=== PATIENT | female | born 1940 | race Caucasian/White ===

== ENCOUNTER 2023-09-11 12:07 | Inpatient (IN) ==
[2023-09-11 13:13] LABS: ABS Basophils 0.1 10^3/uL (0.0-0.1); ABS Lymphocytes 0.5 10^3/uL (1.0-4.8); ABS Monocytes 0.5 10^3/uL (0.0-0.9); ABS Neutrophils 16.8 10^3/uL (1.5-7.6); Hematocrit 22.4 % (35-45); Hemoglobin 7.3 g/dL (11.5-14.3); Lymphocyte % 2.6 %; Mean Corpuscular Hemoglobin 29.3 pg (27-33); Mean Corpuscular Hgb Conc 32.6 g/dL (31-36); Mean Corpuscular Volume 89.7 fL (80-97); Mean Platelet Volume 6.8 fL (7.5-11.2); Platelet Count 364 10^3/uL (150-450); Red Cell Distribution Width 14.9 % (12-17); White Blood Count 17.9 10^3/uL (3.8-11.8)
[2023-09-11 13:30] LABS: Urine Appearance Clear; Urine Bilirubin Negative (Negative); Urine Blood 1+ (Negative); Urine Color Straw; Urine Glucose 2+(150 mg/dL) (Negative); Urine Ketones Trace (Negative); Urine Nitrite Negative (Negative); Urine Protein Negative (Negative); Urine Specific Gravity 1.018 (1.002-1.030); Urine Urobilinogen Negative (Negative)
[2023-09-11 13:31] LABS: Albumin 3.4 g/dL (3.2-5.2); Albumin/Globulin Ratio 1.1 (1-3); C Reactive Protein 19.79 mg/L (<8.01); Calcium 9.3 mg/dL (8.6-10.3); Creatinine, Serum 0.74 mg/dL (0.51-0.95); Potassium 4.6 mmol/L (3.5-5.0); Total Bilirubin 0.3 mg/dL (0.2-1.0); Total Protein 6.4 g/dL (6.4-8.9); eGFR CKD-EPI 81.7 (>60)
[2023-09-11 13:40] LABS: Urine Bacteria Absent (Absent); Urine Red Blood Cell Trace(0-2/hpf) (Absent); Urine Squamous Epithelial Cell Present (Absent); Urine White Blood Cell Trace(0-5/hpf) (Absent)
[2023-09-11 13:42] LABS: INR 1.21 (0.83-1.13)
[2023-09-11] MEDS ORDERED: Lactated Ringers 1000 ml BAG 1,000 ML IV ONE ×3 (13:57→19:02)
[2023-09-11 14:42] LABS: High Sensitivity Troponin 1 Hr 119 pg/mL (<15)
[2023-09-11] MEDS ORDERED: Pantoprazole VIAL 40 MG VIAL IV ONE (15:39)
[2023-09-11] MEDS ORDERED: Acetaminophen IV 1 GM/100ML 1,000 MG/100 ML BAG IV ONE (15:40)
[2023-09-11] MEDS ORDERED: Pantoprazole 80 mg in NS BAG 80 MG/250 ML BAG IV ONE (16:00)
[2023-09-11 17:05] LABS: Hemoglobin 6.1 g/dL (11.5-14.3)
[2023-09-11] MEDS ORDERED: Morphine 2 MG/ML SYRINGE IV PRN (18:45)
[2023-09-11 20:03] LABS: Hematocrit 15.3 % (35-45); Mean Corpuscular Hemoglobin 30.7 pg (27-33); Mean Corpuscular Hgb Conc 34.4 g/dL (31-36); Mean Corpuscular Volume 89.4 fL (80-97); Mean Platelet Volume 6.9 fL (7.5-11.2); Platelet Count 337 10^3/uL (150-450); Red Blood Count 1.71 10^6/uL (3.63-4.92); Red Cell Distribution Width 14.8 % (12-17); White Blood Count 13.4 10^3/uL (3.8-11.8)
[2023-09-11 21:59] LABS: Hemoglobin 5.2 g/dL (11.5-14.3)
[2023-09-11] MEDS ORDERED: HYDROmorphone 0.5 MG/0.5 ML SYRINGE IV SLOW PU PRN (23:04)
[2023-09-11 23:32] LABS: Potassium 5.2 mmol/L (3.5-5.0)
[2023-09-11 23:33] LABS: Albumin 2.4 g/dL (3.2-5.2); Albumin/Globulin Ratio 1.3 (1-3); Calcium 8.4 mg/dL (8.6-10.3); Creatinine, Serum 0.99 mg/dL (0.51-0.95); Globulin 1.8 g/dL (2-4); Total Bilirubin 0.6 mg/dL (0.2-1.0); Total Protein 4.2 g/dL (6.4-8.9); eGFR CKD-EPI 57.6 (>60)
[2023-09-12] MEDS ORDERED: Iodixanol (CONTRAST) 320 MG/ML 100 ML SDV IV ONE (00:34)
[2023-09-12] MEDS ORDERED: Sodium Bicarb 8.4% Vial 50 ML 150 MEQ in D5W 1000 ml BAG 850 ML IV SCH (01:00)
[2023-09-12] MEDS ORDERED: Lactated Ringers 1000 ml BAG 1,000 ML IV ONE (01:30)
[2023-09-12] MEDS ORDERED: Norepinephrine 16MCG/ML BAGD5W 4,000 MCG/250 ML BAG IV ONE (01:30)
[2023-09-12] MEDS: cefTRIAXone 1 gm/50 mL D5W 1 GM/50 ML BAG IV SCH ×2 (01:33→11:42)
[2023-09-12] MEDS: Norepinephrine 16MCG/ML BAGD5W 4,000 MCG/250 ML BAG IV SCH ×5 (01:34→22:49)
[2023-09-12] MEDS ORDERED: Pantoprazole 80 mg in NS BAG 80 MG/250 ML BAG IV SCH (02:00)
[2023-09-12 03:05] LABS: ABS Basophils 0.3 10^3/uL (0.0-0.1); ABS Lymphocytes 0.9 10^3/uL (1.0-4.8); ABS Monocytes 1.4 10^3/uL (0.0-0.9); ABS Neutrophils 18.4 10^3/uL (1.5-7.6); ABS Nucleated RBC 0.05 10^3/ul; Hematocrit 36.5 % (35-45); Hemoglobin 12.3 g/dL (11.5-14.3); Lymphocyte % 4.2 %; Mean Corpuscular Hemoglobin 29.3 pg (27-33); Mean Corpuscular Hgb Conc 33.5 g/dL (31-36); Mean Corpuscular Volume 87.3 fL (80-97); Mean Platelet Volume 7.2 fL (7.5-11.2); Nucleated Red Blood Cells % 0.2 %/100WBC (0.0-0.8); Platelet Count 154 10^3/uL (150-450); Red Blood Count 4.18 10^6/uL (3.63-4.92); Red Cell Distribution Width 17.1 % (12-17)
[2023-09-12 03:15] LABS: Activated Partial Thrombo Time 21.4 seconds (26.0-38.0); INR 1.27 (0.83-1.13)
[2023-09-12 03:19] LABS: Calcium 7.8 mg/dL (8.6-10.3); Potassium 4.5 mmol/L (3.5-5.0)
[2023-09-12 03:25] LABS: Creatinine, Serum 0.91 mg/dL (0.51-0.95); eGFR CKD-EPI 63.8 (>60)
[2023-09-12] MEDS ORDERED: Ondansetron 4 mg VIAL 2 MG/ML 2 ml VIAL IV PRN (05:30)
[2023-09-12 06:03] LABS: Hematocrit 36.4 % (35-45); Hemoglobin 12.3 g/dL (11.5-14.3); Mean Corpuscular Hemoglobin 29.5 pg (27-33); Mean Corpuscular Hgb Conc 33.8 g/dL (31-36); Mean Corpuscular Volume 87.4 fL (80-97); Mean Platelet Volume 7.2 fL (7.5-11.2); Platelet Count 174 10^3/uL (150-450); Red Blood Count 4.16 10^6/uL (3.63-4.92); Red Cell Distribution Width 17.3 % (12-17); White Blood Count 25.4 10^3/uL (3.8-11.8)
[2023-09-12 06:10] LABS: ABS Basophils 0.1 10^3/uL (0.0-0.1); ABS Monocytes 1.5 10^3/uL (0.0-0.9); ABS Neutrophils 22.9 10^3/uL (1.5-7.6); ABS Nucleated RBC 0.02 10^3/ul; Lymphocyte % 3.7 %; Nucleated Red Blood Cells % 0.1 %/100WBC (0.0-0.8)
[2023-09-12] MEDS ORDERED: CALCIUM GLUCONATE 1GM/50ML NS 1 GM/50 ML BAG IV ONE (06:29)
[2023-09-12 06:30] LABS: INR 1.24 (0.83-1.13)
[2023-09-12 06:34] LABS: Albumin 2.6 g/dL (3.2-5.2); Albumin/Globulin Ratio 1.3 (1-3); Calcium 8.1 mg/dL (8.6-10.3); Creatinine, Serum 0.98 mg/dL (0.51-0.95); Magnesium 1.6 mg/dL (1.9-2.7); Potassium 4.6 mmol/L (3.5-5.0); Total Bilirubin 0.9 mg/dL (0.2-1.0); Total Protein 4.6 g/dL (6.4-8.9); eGFR CKD-EPI 58.3 (>60)
[2023-09-12] MEDS ORDERED: fentaNYL 100 mcg/2 ml 50 MCG/ML VIAL IV SLOW PU PRN (06:42)
[2023-09-12 06:54] LABS: TSH Ultra Thyroid Stim Horm 2.36 mcIU/mL (0.34-5.60)
[2023-09-12] MEDS: Acetaminophen IV 1 GM/100ML 1,000 MG/100 ML BAG IV PRN (08:27)
[2023-09-12] MEDS ORDERED: Rocuronium 50 mg VIAL 10 mg/ml 5 ml VIAL (50 mg) ONE ×2 (08:33→11:00)
[2023-09-12] MEDS ORDERED: Succinylcholine 200 mg VIAL 20 mg/ml 10 ml VIAL (200 mg) ONE (08:33)
[2023-09-12] MEDS ORDERED: Phenylephrine 40 mcg/mL 10mL (400mcg) SYRINGE ONE ×2 (08:52→12:27)
[2023-09-12] MEDS ORDERED: Etomidate 40 mg/20 ml (2 MG/ML) 20 ml VIAL (40 mg) ONE (08:52)
[2023-09-12] MEDS ORDERED: Propofol 10 MG/ML 20 ML BTL ONE (08:52)
[2023-09-12] MEDS ORDERED: Midazolam 10 mg/10 ml VIAL 1 mg/ml 10 ml VIAL (10 mg) ONE (08:52)
[2023-09-12] MEDS ORDERED: Phenylephrine 40 mcg/mL 10mL (400mcg) SYRINGE IV PUSH ONE ×2 (09:00→12:30)
[2023-09-12] MEDS: Pantoprazole 80 mg in NS BAG 80 MG/250 ML BAG IV SCH ×2 (09:09→17:51)
[2023-09-12] MEDS: Midazolam 50 MG PREMIX IV DRIP 50 ML IV SCH ×3 (09:26→18:56)
[2023-09-12] MEDS ORDERED: Magnesium Sulfate IV 3 GM in NS 0.9% 100 ml BAG 100 ML IVPB ONE (09:30)
[2023-09-12 09:46] LABS: PCO2 Arterial 33 mmHg (35-45); PO2 Arterial 403 mmHg (80-100)
[2023-09-12 09:46] LABS: Hematocrit 21.5 % (35-45); Hemoglobin 7.3 g/dL (11.5-14.3); Mean Corpuscular Hemoglobin 29.7 pg (27-33); Mean Corpuscular Volume 87.1 fL (80-97); Mean Platelet Volume 7.6 fL (7.5-11.2); Platelet Count 166 10^3/uL (150-450); Red Blood Count 2.47 10^6/uL (3.63-4.92); Red Cell Distribution Width 17.1 % (12-17); White Blood Count 18.7 10^3/uL (3.8-11.8)
[2023-09-12] MEDS ORDERED: Propofol 10 mg/ml 100 ML BTL 1,000 MG/100 ML BTL ONE (10:00)
[2023-09-12] MEDS ORDERED: Midazolam 2 mg/2 ml VIAL 1 mg/ml 2 ml VIAL (2 mg) ONE (10:00)
[2023-09-12] MEDS ORDERED: Erythromycin Lactobionate IV 250 MG in NS 0.9% 100 ml BAG 100 ML IVPB ONE (10:00)
[2023-09-12] MEDS ORDERED: Midazolam 2 mg/2 ml VIAL 1 mg/ml 2 ml VIAL (2 mg) IV SLOW PU ONE (10:00)
[2023-09-12 10:02] LABS: Urine Appearance Clear; Urine Bilirubin Negative (Negative); Urine Blood Negative (Negative); Urine Color Yellow; Urine Glucose Negative (Negative); Urine Ketones Negative (Negative); Urine Nitrite Negative (Negative); Urine Protein Negative (Negative); Urine Specific Gravity 1.028 (1.002-1.030); Urine Urobilinogen Negative (Negative)
[2023-09-12] MEDS: Propofol 10 mg/ml 100 ML BTL 1,000 MG/100 ML BTL IV SCH ×3 (10:05→19:57)
[2023-09-12] MEDS: Chlorhexidine MOUTHWASH 0.12% 15 ML UDC SWISH SPIT SCH ×4 (10:13→21:53)
[2023-09-12 10:16] LABS: High Sensitivity Troponin 3 Hr 10712 pg/mL (<15)
[2023-09-12 10:31] LABS: ABS Basophils 0.1 10^3/uL (0.0-0.1); ABS Lymphocytes 1.4 10^3/uL (1.0-4.8); ABS Monocytes 1.1 10^3/uL (0.0-0.9); ABS Neutrophils 16.1 10^3/uL (1.5-7.6); ABS Nucleated RBC 0.03 10^3/ul; Lymphocyte % 7.3 %; Nucleated Red Blood Cells % 0.1 %/100WBC (0.0-0.8)
[2023-09-12] MEDS ORDERED: Vancomycin 1,000 MG in NS 0.9% 250 ml 250 ML IVPB ONE (10:57)
[2023-09-12] MEDS ORDERED: Vancomycin per Pharmacy 1 EA NOTE FOLLOW UP SCH (11:00)
[2023-09-12 11:02] LABS: Anion Gap 8 mmol/L (2-16); Blood Urea Nitrogen 90 mg/dL (6-24); CO2 Carbon Dioxide 16 mmol/L (22-32); Chloride 112 mmol/L (101-111); Creatinine, Serum 1.12 mg/dL (0.51-0.95); Glucose 206 mg/dL (70-100); Potassium 5.2 mmol/L (3.5-5.0); Sodium 136 mmol/L (135-145); eGFR CKD-EPI 49.7 (>60)
[2023-09-12 11:03] LABS: ALT 72 U/L (7-52); AST 86 U/L (13-39); Albumin < 1.7 g/dL (3.2-5.2); Albumin/Globulin Ratio 1.3 (1-3); Alkaline Phosphatase 31 U/L (35-149); Globulin 1.3 g/dL (2-4); Indirect Bilirubin 0.3 mg/dL (0.3-1.0); Magnesium 1.4 mg/dL (1.9-2.7); Phosphorus 4.6 mg/dL (2.5-5.0)
[2023-09-12] MEDS ORDERED: Rocuronium 50 mg VIAL 10 mg/ml 5 ml VIAL (50 mg) IV ONE (11:43)
[2023-09-12] MEDS ORDERED: Piperacillin/Tazobac 3.375 BAG 3.375 GM/100 ML BAG IV ONE (11:45)
[2023-09-12] MEDS ORDERED: Sulfur Hexaflouride MICROSPHR 25 MG VIAL ONE (11:49)
[2023-09-12] MEDS ORDERED: Zosyn per Pharmacy NOTE FOLLOW UP SCH (12:00)
[2023-09-12] MEDS ORDERED: Vancomycin 1,500 MG in NS 0.9% 250 ml 250 ML IVPB ONE (12:00)
[2023-09-12] MEDS ORDERED: Heparin 2 UNITS/ML IVPREMIX 1,000 UNIT/500 ML BAG IV ONE ×3 (13:17→13:37)
[2023-09-12] MEDS ORDERED: Lidocaine 1% VIAL 10 MG/ML 30 ML VIAL ONE (13:17)
[2023-09-12] MEDS ORDERED: Iodixanol 320 (CONTRAST) 100 ML SDV ONE (13:19)
[2023-09-12] MEDS ORDERED: Iohexol 350 (CONTRAST) 100 ML PAK IV ONE (13:45)
[2023-09-12 15:00] LABS: ABS Lymphocytes 0.9 10^3/uL (1.0-4.8); ABS Monocytes 0.8 10^3/uL (0.0-0.9); ABS Neutrophils 17.6 10^3/uL (1.5-7.6); ABS Nucleated RBC 0.06 10^3/ul; Hemoglobin 7.5 g/dL (11.5-14.3); Lymphocyte % 4.7 %; Mean Corpuscular Hemoglobin 29.6 pg (27-33); Mean Corpuscular Hgb Conc 34.2 g/dL (31-36); Mean Corpuscular Volume 86.5 fL (80-97); Mean Platelet Volume 7.3 fL (7.5-11.2); Nucleated Red Blood Cells % 0.3 %/100WBC (0.0-0.8); Platelet Count 174 10^3/uL (150-450); Red Blood Count 2.54 10^6/uL (3.63-4.92); Red Cell Distribution Width 16.7 % (12-17); White Blood Count 19.4 10^3/uL (3.8-11.8)
[2023-09-12 15:20] LABS: Calcium 7.3 mg/dL (8.6-10.3); Creatinine, Serum 1.44 mg/dL (0.51-0.95); Potassium 5.3 mmol/L (3.5-5.0); eGFR CKD-EPI 36.8 (>60)
[2023-09-12] MEDS: ZOSYN 3.375 GM Q8H per EXTENDED INFUSION IV SCH (16:15)
[2023-09-12 20:04] LABS: Hematocrit 29.1 % (35-45); Mean Corpuscular Hemoglobin 29.7 pg (27-33); Mean Corpuscular Hgb Conc 34.4 g/dL (31-36); Mean Corpuscular Volume 86.5 fL (80-97); Mean Platelet Volume 7.7 fL (7.5-11.2); Platelet Count 140 10^3/uL (150-450); Red Blood Count 3.36 10^6/uL (3.63-4.92); Red Cell Distribution Width 17.5 % (12-17); White Blood Count 15.2 10^3/uL (3.8-11.8)
[2023-09-12 23:13] LABS: PCO2 Arterial 36 mmHg (35-45); PO2 Arterial 114 mmHg (80-100)
[2023-09-12 23:15] LABS: Hematocrit 29.5 % (35-45); Hemoglobin 10.2 g/dL (11.5-14.3); Mean Corpuscular Hgb Conc 34.7 g/dL (31-36); Mean Corpuscular Volume 86.7 fL (80-97); Mean Platelet Volume 7.4 fL (7.5-11.2); Platelet Count 158 10^3/uL (150-450); Red Cell Distribution Width 17.3 % (12-17); White Blood Count 20.9 10^3/uL (3.8-11.8)
[2023-09-12 23:28] LABS: Albumin 2.4 g/dL (3.2-5.2); Calcium 7.3 mg/dL (8.6-10.3); Potassium 4.2 mmol/L (3.5-5.0); Total Bilirubin 0.8 mg/dL (0.2-1.0)
[2023-09-12 23:34] LABS: Albumin/Globulin Ratio 1.1 (1-3); Creatinine, Serum 1.71 mg/dL (0.51-0.95); Globulin 2.1 g/dL (2-4); Total Protein 4.5 g/dL (6.4-8.9); eGFR CKD-EPI 29.9 (>60)
[2023-09-13] MEDS: ZOSYN 3.375 GM Q8H per EXTENDED INFUSION IV SCH ×4 (00:03→23:17)
[2023-09-13] MEDS: Norepinephrine 16MCG/ML BAGD5W 4,000 MCG/250 ML BAG IV SCH (01:02)
[2023-09-13 01:16] LABS: ABS Lymphocytes 0.6 10^3/uL (1.0-4.8); ABS Monocytes 1.1 10^3/uL (0.0-0.9); ABS Neutrophils 19.1 10^3/uL (1.5-7.6); ABS Nucleated RBC 0.05 10^3/ul; Acanthocytes 1+; Anisocytosis 1+; Eosinophil % 0.1 %; Lymphocyte % 3.1 %; Nucleated Red Blood Cells % 0.2 %/100WBC (0.0-0.8); Polychromasia 1+
[2023-09-13] MEDS: Midazolam 50 MG PREMIX IV DRIP 50 ML IV SCH ×2 (01:40→10:14)
[2023-09-13] MEDS: Chlorhexidine MOUTHWASH 0.12% 15 ML UDC SWISH SPIT SCH ×6 (01:43→22:30)
[2023-09-13] MEDS: Norepinephrine *QUAD STRENGTH* 16 mg/250 mL NS (ICU ONLY) IV SCH ×2 (02:40→12:32)
[2023-09-13] MEDS: Propofol 10 mg/ml 100 ML BTL 1,000 MG/100 ML BTL IV SCH ×2 (03:29→10:05)
[2023-09-13] MEDS: Pantoprazole 80 mg in NS BAG 80 MG/250 ML BAG IV SCH ×3 (03:30→23:17)
[2023-09-13] MEDS: Acetaminophen IV 1 GM/100ML 1,000 MG/100 ML BAG IV PRN ×2 (04:25→20:44)
[2023-09-13 04:54] LABS: PCO2 Arterial 32 mmHg (35-45); PO2 Arterial 78 mmHg (80-100)
[2023-09-13 05:27] LABS: Albumin 2.3 g/dL (3.2-5.2); Albumin/Globulin Ratio 1.2 (1-3); Creatinine, Serum 1.73 mg/dL (0.51-0.95); Potassium 4.4 mmol/L (3.5-5.0); Total Bilirubin 0.6 mg/dL (0.2-1.0); Total Protein 4.3 g/dL (6.4-8.9); eGFR CKD-EPI 29.5 (>60)
[2023-09-13 05:28] LABS: Vancomycin Random 12.5 mcg/mL
[2023-09-13] MEDS ORDERED: Vancomycin Random Level NOTE FOLLOW UP ONE (06:00)
[2023-09-13 06:43] LABS: Hematocrit 27.2 % (35-45); Hemoglobin 9.5 g/dL (11.5-14.3); Mean Corpuscular Hemoglobin 29.8 pg (27-33); Mean Corpuscular Hgb Conc 34.9 g/dL (31-36); Mean Corpuscular Volume 85.4 fL (80-97); Mean Platelet Volume 7.9 fL (7.5-11.2); Platelet Count 159 10^3/uL (150-450); Red Blood Count 3.18 10^6/uL (3.63-4.92); Red Cell Distribution Width 17.5 % (12-17); White Blood Count 18.4 10^3/uL (3.8-11.8)
[2023-09-13 06:58] LABS: ABS Lymphocytes 0.7 10^3/uL (1.0-4.8); ABS Monocytes 0.9 10^3/uL (0.0-0.9); ABS Neutrophils 16.8 10^3/uL (1.5-7.6); ABS Nucleated RBC 0.02 10^3/ul; Eosinophil % 0.1 %; Lymphocyte % 3.7 %; Nucleated Red Blood Cells % 0.1 %/100WBC (0.0-0.8)
[2023-09-13] MEDS ORDERED: Sodium Bicarb 8.4% Vial 50 ML 150 MEQ in D5W 1000 ml BAG 850 ML IV SCH ×2 (07:00→12:00)
[2023-09-13] MEDS ORDERED: Lactated Ringers 1000 ml BAG 1,000 ML IV ONE (07:40)
[2023-09-13] MEDS ORDERED: Lactated Ringers 1000 ml BAG 500 ML IV ONE (08:15)
[2023-09-13 09:09] LABS: Hematocrit 31.2 % (35-45); Mean Corpuscular Hemoglobin 29.2 pg (27-33); Mean Corpuscular Volume 91.4 fL (80-97); Mean Platelet Volume 7.9 fL (7.5-11.2); Platelet Count 126 10^3/uL (150-450); Red Blood Count 3.42 10^6/uL (3.63-4.92); Red Cell Distribution Width 18.6 % (12-17); White Blood Count 16.4 10^3/uL (3.8-11.8)
[2023-09-13 10:23] LABS: ABS Lymphocytes 0.4 10^3/uL (1.0-4.8); ABS Monocytes 0.8 10^3/uL (0.0-0.9); ABS Neutrophils 15.1 10^3/uL (1.5-7.6); ABS Nucleated RBC 0.26 10^3/ul; Eosinophil % 0.1 %; Lymphocyte % 2.6 %; Nucleated Red Blood Cells % 1.6 %/100WBC (0.0-0.8)
[2023-09-13 11:05] LABS: Resp Rate 20
[2023-09-13 11:10] LABS: PCO2 Arterial 29 mmHg (35-45); PO2 Arterial 83 mmHg (80-100)
[2023-09-13] MEDS ORDERED: Vancomycin 1000 MG in NS 0.9% 250 ML IVPB ONE (15:00)
[2023-09-13 16:08] LABS: Hematocrit 27.8 % (35-45); Hemoglobin 9.6 g/dL (11.5-14.3); Mean Corpuscular Hemoglobin 29.6 pg (27-33); Mean Corpuscular Hgb Conc 34.6 g/dL (31-36); Mean Corpuscular Volume 85.5 fL (80-97); Mean Platelet Volume 7.9 fL (7.5-11.2); Platelet Count 143 10^3/uL (150-450); Red Blood Count 3.25 10^6/uL (3.63-4.92); Red Cell Distribution Width 17.9 % (12-17); White Blood Count 13.8 10^3/uL (3.8-11.8)
[2023-09-13 16:09] LABS: PCO2 Arterial 27 mmHg (35-45); PO2 Arterial 64 mmHg (80-100)
[2023-09-13 16:29] LABS: Corrected Retic Count 1.5 % (0.5-1.5); Hematocrit for Retic CNT 27.7 % (35-45); Immature Retic Fraction 0.75; RBC Retic Count 3.22 10^6/ul (3.63-4.92)
[2023-09-13 16:52] LABS: ABS Lymphocytes 0.4 10^3/uL (1.0-4.8); ABS Monocytes 0.6 10^3/uL (0.0-0.9); ABS Neutrophils 13.3 10^3/uL (1.5-7.6); ABS Nucleated RBC 0.06 10^3/ul; Anisocytosis 2+; Lymphocyte % 2.8 %; Nucleated Red Blood Cells % 0.4 %/100WBC (0.0-0.8); Polychromasia 1+
[2023-09-13] MEDS ORDERED: Metoprolol Tartrate 5 mg VIAL 5 ml VIAL (1 mg/ml) ONE (19:01)
[2023-09-13] MEDS ORDERED: Metoprolol Tartrate 5 mg VIAL 5 ml VIAL (1 mg/ml) IV ONE (19:08)
[2023-09-13] MEDS ORDERED: Phenylephrine DRIP 0.2 MG/ML in NS 0.9% 250 ML (PHA mix) IV SCH (19:15)
[2023-09-13] MEDS ORDERED: PHENYLEPHRINE DRIP IVPREMIX 50 MG/250 ML BAG IV SCH (20:00)
[2023-09-13 20:07] LABS: Calcium 7.1 mg/dL (8.6-10.3); Potassium 3.8 mmol/L (3.5-5.0)
[2023-09-13 20:13] LABS: Creatinine, Serum 1.4 mg/dL (0.51-0.95); Phosphorus 4.1 mg/dL (2.5-5.0)
[2023-09-13 21:37] LABS: Hematocrit 24.8 % (35-45); Hemoglobin 8.7 g/dL (11.5-14.3)
[2023-09-13 21:38] LABS: PCO2 Arterial 34 mmHg (35-45); PO2 Arterial 87 mmHg (80-100)
[2023-09-13 21:50] LABS: Albumin 2.1 g/dL (3.2-5.2); Calcium 7.1 mg/dL (8.6-10.3); Potassium 3.8 mmol/L (3.5-5.0); Total Bilirubin 0.7 mg/dL (0.2-1.0)
[2023-09-13 21:56] LABS: Creatinine, Serum 1.44 mg/dL (0.51-0.95); Globulin 2.2 g/dL (2-4); Total Protein 4.3 g/dL (6.4-8.9); eGFR CKD-EPI 36.8 (>60)
[2023-09-13] MEDS: Phenylephrine IV 50 MG in NS 0.9% 250 ml 245 ML IV SCH ×2 (22:02→23:16)
[2023-09-13] MEDS: Sodium Bicarb 8.4% Vial 50 ML 150 MEQ in D5W 1000 ml BAG 850 ML IV SCH (22:25)
[2023-09-13] MEDS ORDERED: Vasopressin 100 UNITS in D5W 250 ml BAG 245 ML IV SCH (23:45)
[2023-09-13] MEDS ORDERED: VASOPRESSIN IVPREMIX BTL 40 UNIT/100 ML BTL IV ONE (23:58)
[2023-09-14 00:02] LABS: Hematocrit 23.8 % (35-45); Hemoglobin 8.4 g/dL (11.5-14.3)
[2023-09-14] MEDS ORDERED: VASOPRESSIN IVPREMIX BTL 40 UNIT/100 ML BTL IV SCH (00:15)
[2023-09-14] MEDS: Propofol 10 mg/ml 100 ML BTL 1,000 MG/100 ML BTL IV SCH ×2 (01:04→15:46)
[2023-09-14] MEDS: Chlorhexidine MOUTHWASH 0.12% 15 ML UDC SWISH SPIT SCH ×6 (01:43→22:52)
[2023-09-14] MEDS: Phenylephrine IV 100 MG in NS 0.9% 500 ml BAG 490 ML IV SCH ×3 (02:20→18:56)
[2023-09-14] MEDS ORDERED: Iodixanol (CONTRAST) 320 MG/ML 100 ML SDV IV ONE ×2 (04:04→17:07)
[2023-09-14] MEDS: Sodium Bicarb 8.4% Vial 50 ML 150 MEQ in D5W 1000 ml BAG 850 ML IV SCH ×5 (04:25→22:42)
[2023-09-14] MEDS ORDERED: Vancomycin Random Level NOTE FOLLOW UP ONE (06:00)
[2023-09-14] MEDS ORDERED: Piperacillin/Tazobac 3.375 BAG 3.375 GM/100 ML BAG IV ONE (06:21)
[2023-09-14 06:39] LABS: Hematocrit 23.1 % (35-45); Mean Corpuscular Hemoglobin 29.4 pg (27-33); Mean Corpuscular Hgb Conc 34.5 g/dL (31-36); Mean Corpuscular Volume 85.2 fL (80-97); Platelet Count 148 10^3/uL (150-450); Red Blood Count 2.71 10^6/uL (3.63-4.92); Red Cell Distribution Width 17.9 % (12-17); White Blood Count 14.1 10^3/uL (3.8-11.8)
[2023-09-14 06:43] LABS: Calcium 7.1 mg/dL (8.6-10.3); Creatinine, Serum 1.35 mg/dL (0.51-0.95); Potassium 3.6 mmol/L (3.5-5.0); eGFR CKD-EPI 39.7 (>60)
[2023-09-14] MEDS ORDERED: Zosyn per Pharmacy NOTE FOLLOW UP SCH (07:00)
[2023-09-14 07:06] LABS: Vancomycin Random 10.2 mcg/mL
[2023-09-14 07:38] LABS: ABS Eosinophils 0.1 10^3/uL (0.0-0.5); ABS Lymphocytes 0.5 10^3/uL (1.0-4.8); ABS Monocytes 0.5 10^3/uL (0.0-0.9); ABS Nucleated RBC 0.39 10^3/ul; Anisocytosis 1+; Eosinophil % 0.5 %; Lymphocyte % 3.3 %; Nucleated Red Blood Cells % 2.8 %/100WBC (0.0-0.8); Polychromasia 1+
[2023-09-14] MEDS: ZOSYN 3.375 GM Q8H per EXTENDED INFUSION IV SCH ×2 (08:04→18:17)
[2023-09-14] MEDS ORDERED: Magnesium Sulfate 2 gm BAG 2 GM/50 ML BAG IVPB ONE (08:14)
[2023-09-14] MEDS: KCL 20 MEQ/100 ML IVPREMIX 20 MEQ/100 ML BAG IV SCH ×2 (08:51→11:25)
[2023-09-14] MEDS ORDERED: Vancomycin 1,250 MG in NS 0.9% 250 ml 250 ML IVPB ONE (09:00)
[2023-09-14] MEDS: Pantoprazole 80 mg in NS BAG 80 MG/250 ML BAG IV SCH ×2 (10:18→20:11)
[2023-09-14 11:55] LABS: PCO2 Arterial 35 mmHg (35-45); PO2 Arterial 82 mmHg (80-100); Resp Rate 24
[2023-09-14] MEDS ORDERED: Norepinephrine 16MCG/ML BAGD5W 4,000 MCG/250 ML BAG IV SCH (12:00)
[2023-09-14 12:02] LABS: Hematocrit 21.3 % (35-45); Hemoglobin 7.5 g/dL (11.5-14.3); Mean Corpuscular Hgb Conc 35.4 g/dL (31-36); Mean Platelet Volume 7.7 fL (7.5-11.2); Platelet Count 137 10^3/uL (150-450); Red Blood Count 2.51 10^6/uL (3.63-4.92); Red Cell Distribution Width 17.8 % (12-17); White Blood Count 12.4 10^3/uL (3.8-11.8)
[2023-09-14 12:40] LABS: ABS Lymphocytes 0.3 10^3/uL (1.0-4.8); ABS Monocytes 0.3 10^3/uL (0.0-0.9); ABS Neutrophils 11.8 10^3/uL (1.5-7.6); ABS Nucleated RBC 0.06 10^3/ul; Eosinophil % 0.1 %; Lymphocyte % 2.4 %; Nucleated Red Blood Cells % 0.4 %/100WBC (0.0-0.8); RBC Morphology Normal (Normal)
[2023-09-14] MEDS: Midazolam 50 MG PREMIX IV DRIP 50 ML IV SCH (13:21)
[2023-09-14] MEDS ORDERED: Midazolam 10 mg/10 ml VIAL 1 mg/ml 10 ml VIAL (10 mg) ONE (15:42)
[2023-09-14] MEDS ORDERED: fentaNYL 100 mcg/2 ml 50 MCG/ML VIAL ONE (15:42)
[2023-09-14 18:27] LABS: Mean Corpuscular Hemoglobin 29.7 pg (27-33); Mean Corpuscular Hgb Conc 34.8 g/dL (31-36); Mean Corpuscular Volume 85.4 fL (80-97); Mean Platelet Volume 7.8 fL (7.5-11.2); Platelet Count 153 10^3/uL (150-450); Red Blood Count 3.05 10^6/uL (3.63-4.92); Red Cell Distribution Width 16.9 % (12-17); White Blood Count 15.6 10^3/uL (3.8-11.8)
[2023-09-14 20:14] LABS: Hematocrit 25.1 % (35-45); Hemoglobin 8.7 g/dL (11.5-14.3); Mean Corpuscular Hemoglobin 29.7 pg (27-33); Mean Corpuscular Hgb Conc 34.9 g/dL (31-36); Mean Corpuscular Volume 85.2 fL (80-97); Mean Platelet Volume 7.7 fL (7.5-11.2); Platelet Count 148 10^3/uL (150-450); Red Blood Count 2.94 10^6/uL (3.63-4.92); Red Cell Distribution Width 17.2 % (12-17); White Blood Count 14.4 10^3/uL (3.8-11.8)
[2023-09-14 21:05] LABS: ABS Lymphocytes 0.5 10^3/uL (1.0-4.8); ABS Monocytes 0.4 10^3/uL (0.0-0.9); ABS Neutrophils 13.4 10^3/uL (1.5-7.6); ABS Nucleated RBC 0.03 10^3/ul; Eosinophil % 0.1 %; Lymphocyte % 3.2 %; Nucleated Red Blood Cells % 0.2 %/100WBC (0.0-0.8)
[2023-09-14] MEDS: Acetaminophen IV 1 GM/100ML 1,000 MG/100 ML BAG IV PRN (23:50)
[2023-09-15] MEDS: ZOSYN 3.375 GM Q8H per EXTENDED INFUSION IV SCH ×3 (00:59→17:23)
[2023-09-15 01:45] LABS: Hematocrit 23.3 % (35-45); Hemoglobin 8.2 g/dL (11.5-14.3)
[2023-09-15] MEDS: Chlorhexidine MOUTHWASH 0.12% 15 ML UDC SWISH SPIT SCH ×5 (02:46→14:15)
[2023-09-15] MEDS: Sodium Bicarb 8.4% Vial 50 ML 150 MEQ in D5W 1000 ml BAG 850 ML IV SCH (04:13)
[2023-09-15 04:42] LABS: Hematocrit 23.6 % (35-45); Hemoglobin 8.3 g/dL (11.5-14.3); Mean Corpuscular Hemoglobin 29.8 pg (27-33); Mean Corpuscular Hgb Conc 35.1 g/dL (31-36); Mean Platelet Volume 7.5 fL (7.5-11.2); Platelet Count 133 10^3/uL (150-450); Red Blood Count 2.77 10^6/uL (3.63-4.92); White Blood Count 14.3 10^3/uL (3.8-11.8)
[2023-09-15 04:43] LABS: ABS Lymphocytes 0.4 10^3/uL (1.0-4.8); ABS Monocytes 0.5 10^3/uL (0.0-0.9); ABS Neutrophils 13.4 10^3/uL (1.5-7.6); ABS Nucleated RBC 0.12 10^3/ul; Lymphocyte % 2.7 %; Nucleated Red Blood Cells % 0.8 %/100WBC (0.0-0.8)
[2023-09-15 04:53] LABS: Albumin 2.1 g/dL (3.2-5.2); Direct Bilirubin 0.3 mg/dL (0.03-0.18); Indirect Bilirubin 0.4 mg/dL (0.3-1.0); Magnesium 2.3 mg/dL (1.9-2.7); Total Bilirubin 0.7 mg/dL (0.2-1.0)
[2023-09-15 04:59] LABS: Albumin/Globulin Ratio 0.9 (1-3); Creatinine, Serum 0.95 mg/dL (0.51-0.95); Globulin 2.4 g/dL (2-4); Phosphorus 2.6 mg/dL (2.5-5.0); Total Protein 4.5 g/dL (6.4-8.9); eGFR CKD-EPI 60.6 (>60)
[2023-09-15] MEDS: Phenylephrine IV 100 MG in NS 0.9% 500 ml BAG 490 ML IV SCH (05:19)
[2023-09-15 05:21] LABS: Vancomycin Random 9.4 mcg/mL
[2023-09-15] MEDS ORDERED: Calcium CHLORIDE 10% SYRINGE 1 GM/10 ML ONE (05:28)
[2023-09-15] MEDS ORDERED: Amiodarone IV 150 mg/3 ml VIAL ONE (05:28)
[2023-09-15] MEDS ORDERED: EPINEPHrine SYR 0.1MG/ML 10 ml SYRINGE IV ONE (05:28)
[2023-09-15] MEDS ORDERED: VASOPRESSIN IVPREMIX BTL 40 UNIT/100 ML BTL IV ONE (05:44)
[2023-09-15] MEDS: Potassium Chloride LIQUID 20 MEQ/15 ML LIQUID NG TUBE SCH ×2 (05:56→08:47)
[2023-09-15] MEDS: Pantoprazole 80 mg in NS BAG 80 MG/250 ML BAG IV SCH ×2 (05:59→15:32)
[2023-09-15] MEDS ORDERED: Vancomycin Random Level NOTE FOLLOW UP ONE (06:00)
[2023-09-15 06:43] LABS: PCO2 Arterial 44 mmHg (35-45); PO2 Arterial 90 mmHg (80-100)
[2023-09-15 07:06] LABS: Hematocrit 25.2 % (35-45); Hemoglobin 8.7 g/dL (11.5-14.3)
[2023-09-15] MEDS: Midazolam 50 MG PREMIX IV DRIP 50 ML IV SCH (09:14)
[2023-09-15] MEDS ORDERED: KCL 20 MEQ/100 ML IVPREMIX 20 MEQ/100 ML BAG IV ONE (09:16)
[2023-09-15] MEDS: Propofol 10 mg/ml 100 ML BTL 1,000 MG/100 ML BTL IV SCH (11:21)
[2023-09-15] MEDS ORDERED: Magnesium Sulfate 2 gm BAG 2 GM/50 ML BAG IVPB ONE (11:47)
[2023-09-15] MEDS ORDERED: Vancomycin 1000 MG in NS 0.9% 250 ML IVPB SCH (16:00)
[2023-09-15 16:39] VITALS: BP 129/54
[2023-09-15 17:03] LABS: Hematocrit 29.5 % (35-45); Hemoglobin 10.1 g/dL (11.5-14.3); Mean Corpuscular Hemoglobin 29.8 pg (27-33); Mean Corpuscular Hgb Conc 34.3 g/dL (31-36); Mean Corpuscular Volume 87.1 fL (80-97); Platelet Count 134 10^3/uL (150-450); Red Blood Count 3.39 10^6/uL (3.63-4.92); White Blood Count 14.7 10^3/uL (3.8-11.8)
[2023-09-15 17:39] LABS: Calcium 8.2 mg/dL (8.6-10.3); Magnesium 2.7 mg/dL (1.9-2.7); Potassium 4.1 mmol/L (3.5-5.0)
[2023-09-15 17:44] LABS: Creatinine, Serum 1.12 mg/dL (0.51-0.95); eGFR CKD-EPI 49.7 (>60)
[2023-09-15] MEDS ORDERED: Sodium Bicarbonate 8.4% VIAL 1 MEQ/ML 50 ml VIAL (50 meq) IV ONE (18:07)
[2023-09-15] MEDS ORDERED: Ondansetron 4 mg VIAL 2 MG/ML 2 ml VIAL IV PRN (20:33)
[2023-09-15] MEDS ORDERED: HYDROmorphone 0.5 MG/0.5 ML SYRINGE IV SLOW PU ONE (20:48)
[2023-09-15] MEDS ORDERED: Midazolam 50 MG PREMIX IV DRIP 50 ML IV SCH (20:50)
[2023-09-15] MEDS ORDERED: Propofol 10 mg/ml 100 ML BTL 1,000 MG/100 ML BTL IV SCH (21:00)
[2023-09-15] MEDS ORDERED: HYDROmorphone 0.5 MG/0.5 ML SYRINGE IV SLOW PU SCH (22:00)
[2023-09-17] MEDS ORDERED: Vancomycin Trough Check NOTE FOLLOW UP ONE (05:30)
== END 2023-09-15 22:09 | disposition expired | DRG 853 ==
LOC: ED 12:07 → EDHOLD 12:07 → SUATTDRO 16:33 → OBSVTOIN 16:33 → MEDTELE 17:20 → ICU 20:10
PROVIDERS: ADMIT Internal Medicine; ATTEND Internal Medicine Pulmonary Disease